=== PATIENT | male | born 1940 | race Caucasian/White ===

== ENCOUNTER 2019-06-23 19:16 | Emergency (ER) | payer OTHER, MEDICAID ==
[2019-06-23] MEDS: DIPHENHYDRAMINE 50 MG INJ IM (20:46)
[2019-06-23] MEDS: ALBUTEROL 0.083% (NEB) 2.5 MG/3 ML AMP HHN (21:30)
== END 2019-06-23 22:10 | disposition home or self-care (01) ==
LOC: FTE 19:16
DX: R21 Rash and other nonspecific skin eruption (principal); R06.2 Wheezing
CPT/HCPCS: 94664; 96372; 99284-25